=== PATIENT | male | born 1975 | race Caucasian/White ===

== ENCOUNTER → 2024-11-06 | Day surgery (SDC) | payer OTHER ==
[~2024-11-06] MED LIST: ALEVE220 M1 PO; AMLODIPINE BESY10 MG PO; BENICAR20 MG PO; CLONAZEPAM0.5 MG PO; CRESTOR40 MG PO; HYDROCHLOROTHIA25 MG PO; KETAMINE 50MG/5ML SYR ONE; LEXAPRO10 MG PO; LIDOCAINE HCL 2% LOCAL INJ 5 ML SDV VIAL INJ ONE; METFORMIN HCL500 M2 PO; PROPOFOL IV EMULSION 10 MG/ML 20 ML VIAL ONE; TURMERIC500 M1 PO
[2024-11-06] MEDS: LACTATED RINGER'S 1,000 ML ONE (05:51)
[2024-11-06 07:42] VITALS: TEMP 97.1
[2024-11-06 08:10] VITALS: BP 126/77; PULSE 50; RESP 16; O2SAT 96
== END | disposition home or self-care (01) ==
LOC: OR 05:28
PROVIDERS: ATTEND Specialist
DX: M16.12 Unilateral primary osteoarthritis, left hip (principal); G47.33 Obstructive sleep apnea (adult) (pediatric); E11.9 Type 2 diabetes mellitus without complications; I10 Essential (primary) hypertension; R00.1 Bradycardia, unspecified; I45.10 Unspecified right bundle-branch block; Z71.3 Dietary counseling and surveillance; Z71.82 Exercise counseling; F17.210 Nicotine dependence, cigarettes, uncomplicated; Z71.6 Tobacco abuse counseling; E78.5 Hyperlipidemia, unspecified; E66.01 Morbid (severe) obesity due to excess calories; J41.0 Simple chronic bronchitis; G89.29 Other chronic pain; N20.0 Calculus of kidney; F41.9 Anxiety disorder, unspecified; Z01.810 Encounter for preprocedural cardiovascular examination; Z79.84 Long term (current) use of oral hypoglycemic drugs; Z79.1 Long term (current) use of non-steroidal anti-inflammatories (NSAID); Z79.899 Other long term (current) drug therapy; Z68.42 Body mass index [BMI] 45.0-49.9, adult
CPT/HCPCS: 20610; 77002; 93005; J2003; J2704; J7121